=== PATIENT | male | born 1980 ===

== ENCOUNTER 2017-11-03 09:32 | Day surgery (SDC) | payer OTHER ==
[~2017-11-03 09:32] MED LIST: Dextrose 5%/0.45% NS 1,000 ML IV SCH; Morphine 10 mg/5 ml Oral Soln PO PRN; ceFAZolin IV 1 gm in Dextrose 1 GM/50 ML BAG IVPB ONE
[2017-11-03 10:28] LABS: BLOOD UREA NITROGEN 18 mg/dL (9-20); GFR AFRICAN-AMERICAN > 60; GFR NON-AFRICAN AMERICAN > 60
[2017-11-03] MEDS ORDERED: Sodium Chloride 0.45% 500 ML IV ONE (12:11)
[2017-11-03] MEDS ORDERED: Propofol 10 mg/ml Inj (20 ML) ONE ×2 (12:14→12:27)
[2017-11-03] MEDS ORDERED: Midazolam 2 MG/2 ML VIAL ONE (12:14)
[2017-11-03] MEDS ORDERED: Succinylcholine Chloride 20 mg/ml Syr (5 ml) IV ONE (12:26)
[2017-11-03] MEDS ORDERED: Lactated Ringer's 1,000 ML IV ONE ×2 (12:44→12:57)
[2017-11-03 14:15] VITALS: RESP 16
[2017-11-03 16:38] VITALS: BP 124/80; PULSE 69; TEMP 97.5; O2SAT 98
--- NOTE | 2017-11-03 23:30 | OP ---
PROCEDURE DATE: 11/03/2017 PREOPERATIVE DIAGNOSIS: Chronic tonsillitis. POSTOPERATIVE DIAGNOSIS: Chronic tonsillitis. PROCEDURE: Tonsillectomy SURGEON: Wayne Lewis M.D. FINDINGS: 2+ tonsils. DESCRIPTION OF PROCEDURE: The patient was brought into the room, placed in supine position. Anesthesia was initiated through an ET tube. Patient was draped in the usual manner. A mouth gag was placed in the oral cavity, opened and suspended on the Barnes editor index the usual manner. Right tonsil was grabbed and pulled medially. Incision was made in the anterior tonsillar pillar using a plasma knife. Dissection was done between tonsil and tonsillar fossa using plasma knife until the tonsil was removed. Bleeding was controlled using a plasma knife. Next, the other tonsil was grabbed and pulled medially. Incision was made in the anterior tonsillar pillar using a plasma knife. Dissection was done between tonsil and tonsillar fossa using plasma knife until tonsil was removed. Bleeding was controlled using plasma knife. Both tonsillar beds were vigorously treated with a plasma knife wand. No bleeding was noted. Mouth gag was let down for 30 seconds and put back up; no bleeding was noted. The mouth gag was taken out and removed. The patient was taken off anesthesia and taken to recovery room in stable manner. Wayne Lewis MD
== END 2017-11-03 14:50 | disposition home or self-care (01) ==
LOC: C.SDS 09:32
PROVIDERS: ATTEND Otolaryngology
DX: J35.01 Chronic tonsillitis (principal)
CPT/HCPCS: 36415; 42826; 80048; 88304; J0690; J1100; J2001; J2704; J3010; J7030; J7120